=== PATIENT | female | born 1945 | race Caucasian/White ===

== ENCOUNTER 2017-01-27 09:54 | Outpatient (CLI) | payer MEDICARE ==
--- NOTE | 2017-01-27 14:00 | DEXA Report ---
DEXA SCAN: 01/27/2017 CLINICAL INDICATION: Postmenopausal. TECHNIQUE: Dual energy x-ray absorptiometry (DXA) was performed on a En[employer] system. Regions measured are the AP spine, femoral neck, and, if needed, forearm. COMPARISON: None. In accordance with the International Society for Clinical Densitometry (ISCD) guidelines, data from previous exams may be reanalyzed using current recommendations and techniques. This is done to allow a more accurate basis for comparison with the current study. FINDINGS: The data for the lumbar spine is as follows: REGION BMD (g/cm/cm) T-SCORE Z-SCORE L1 0.922 -1.7 -0.1 L2 0.928 -2.3 -0.7 L3 0.927 -2.3 -0.7 L4 0.990 -1.7 -0.2 TOTAL 0.944 -2.0 -0.4 NOTE: All evaluable vertebrae are used for classification. The data for the hip is as follows: REGION BMD (g/cm/cm) T-SCORE Z-SCORE Neck 0.868 -1.2 0.4 TOTAL 0.918 -0.7 0.7 NOTE: The femoral neck or total proximal femur, whichever is lowest, is used for classification. IMPRESSION: THE WHO CLASSIFICATION BASED ON THE INTERNATIONAL REFERENCE STANDARD IS OSTEOPENIA. THE FRACTURE RISK IS INCREASED. RECOMMENDATION: Patients with diagnosis of osteoporosis or osteopenia should have regular bone mineral density assessment. For those eligible for Medicare, routine testing is allowed once every 2 years. Testing frequency can be increased for patients who have rapidly progressing disease or for those who are receiving medical therapy to restore bone mass. COMMENT: World Health Organization (WHO) definitions for osteoporosis and osteopenia: NORMAL BMD: T-score at -1.0 or higher, fracture risk is low. OSTEOPENIA BMD: T-score between -1.0 and -2.5, fracture risk is increased. OSTEOPOROSIS BMD: T-score at -2.5 or lower, fracture risk high. National Osteoporosis Foundation recommends: 1. Obtain adequate dietary calcium (at least 1200 mg per day) and vitamin D (400 -800 international units per day). 2. Participate, as appropriate, in regular weightbearing and muscle- strengthening exercise. 3. Avoid tobacco use and reduce alcohol and caffeine intake. 4. For more detailed information see the website at www.NOF.org. MTDD
== END 2017-01-27 09:55 | disposition home or self-care (01) ==
LOC: DI 09:54
PROVIDERS: ATTEND Physician Assistant
DX: M85.89 Other specified disorders of bone density and structure, multiple sites (principal)
CPT/HCPCS: 77080

== ENCOUNTER 2017-01-27 09:55 | Outpatient (CLI) | payer MEDICARE ==
--- NOTE | 2017-01-28 17:46 | Mammography Report ---
DIGITAL SCREENING MAMMOGRAM: 01/27/2017 CLINICAL INDICATION: A 71-year-old nulliparous patient with personal history of left breast cancer s tatus post lumpectomy and chemoradiation. COMPARISON: 01/2016, 12/2014, 01/2013, 03/2011, 09/2010, 02/2010, 07/2009, 01/2009, 07/2008, 04/2008 . TECHNIQUE: Routine CC and MLO projections were obtained of the breasts. FINDINGS: The breasts demonstrate scattered fibroglandular densities bilaterally. Postoperative and posttreatment changes are present in the left breast. In the right upper central posterior breast, there is a possible developing density. Further evaluation with spot compression views and possible ultrasound is recommended. IMPRESSION: INCOMPLETE EXAMINATION. RECOMMENDATION: Additional evaluation of the right breast as above. BI-RADS category 0, incomplete. STANDARD QUALIFYING STATEMENTS 1. This examination was reviewed with the aid of Computer-Aided Detection (CAD). 2. A negative or benign imaging report should not delay biopsy if clinically suspicious findings are present. Consider surgical consultation if warranted. More than 5% of cancers are not identified by i maging. 3. Dense breasts may obscure an underlying neoplasm. JOB #: [id number] EXT JOB #:[id number]
== END 2017-01-27 09:56 | disposition home or self-care (01) ==
LOC: DI 09:55
PROVIDERS: ATTEND Physician Assistant
DX: Z12.31 Encounter for screening mammogram for malignant neoplasm of breast (principal)
CPT/HCPCS: 77067

== ENCOUNTER 2017-03-01 13:42 | Outpatient (CLI) | payer MEDICARE ==
--- NOTE | 2017-03-01 15:07 | Mammography Report ---
DIGITAL DIAGNOSTIC RIGHT MAMMOGRAM: 03/01/2017 CLINICAL INDICATION: Possible developing density right upper central breast. TECHNIQUE: Right true lateral and spot compression views. COMPARISON: 01/27/2017, 01/07/2016, 12/14/2014, 01/19/2013, 03/25/2011, 09/12/2010, 02/06/2010 FINDINGS: The right breast again demonstrates scattered fibroglandular densities. The density in qu estion dissipates evenly on additional compression. No underlying mass lesion or architectural disto rtion is identified. IMPRESSION: NEGATIVE EXAMINATION. RECOMMENDATION: Routine annual screening unless otherwise clinically indicated. BIRADS CATEGORY 1 - NEGATIVE. STANDARD QUALIFYING STATEMENTS 1. This examination was reviewed with the aid of Computer-Aided Detection (CAD). 2. A negative or benign imaging report should not delay biopsy if clinically suspicious findings are present. Consider surgical consultation if warranted. More than 5% of cancers are not identified by i maging. 3. Dense breasts may obscure an underlying neoplasm. JOB #: [id number] EXT JOB #:
== END 2017-03-01 13:43 | disposition home or self-care (01) ==
LOC: DI 13:42
PROVIDERS: ATTEND Physician Assistant
DX: R92.2 Inconclusive mammogram (principal)

== ENCOUNTER 2018-03-10 12:19 | Outpatient (CLI) | payer MEDICARE ==
--- NOTE | 2018-03-25 19:22 | Mammography Report ---
Reason: SCREEN MAMMOGRAM Procedure Date: 03/10/2018 Accession Number: [id number] / [id number] Procedure: MIRNA - Screening 3D Josiah CPT Code: 99169 FULL RESULT: EXAM: Screening 3D Josiah DATE: 03/10/2018 12:44 PM CLINICAL HISTORY: 72-year-old female with personal history of breast cancer on the left side status post lumpectomy and chemoradiation. TECHNIQUE: Bilateral CC and MLO views were obtained. COMPARISON: 03/01/2017, 01/27/2017, 01/07/2016, 12/14/2014. FINDINGS: The breasts demonstrate heterogeneously dense fibroglandular parenchyma bilaterally. Post treatment changes including postsurgical changes are seen in the left breast. There is a new asymmetry with microcalcifications in the right upper breast 4.9 centimeters from the nipple at the 1:00 position which requires further evaluation. IMPRESSION: Incomplete examination RECOMMENDATION: Additional evaluation as above. BIRADS CATEGORY 0: Incomplete examination STANDARD QUALIFYING STATEMENTS: 1. This examination was not reviewed with the aid of Computer-Aided Detection (CAD). 2. A negative or benign imaging report should not delay biopsy if clinically suspicious findings are present. Consider surgical consultation if warrented. More than 5% of cancers are not identified by imaging. 3. Dense breasts may obscure an underlying neoplasm. 4. This examination was reviewed with the aid of 3D imaging (tomography).
== END 2018-03-10 12:20 | disposition home or self-care (01) ==
LOC: DI 12:19
PROVIDERS: ATTEND Physician Assistant
DX: Z12.31 Encounter for screening mammogram for malignant neoplasm of breast (principal); R92.8 Other abnormal and inconclusive findings on diagnostic imaging of breast; R92.0 Mammographic microcalcification found on diagnostic imaging of breast; Z85.3 Personal history of malignant neoplasm of breast
CPT/HCPCS: 77063; 77067

== ENCOUNTER 2018-04-07 11:45 | Outpatient (CLI) | payer MEDICARE ==
--- NOTE | 2018-04-07 12:53 | Mammography Report ---
Reason: ABN MAMMO - RT SPECIAL VIEWS Procedure Date: 04/07/2018 Accession Number: [id number] / [id number] Procedure: MIRNA - Diag Special Views Dig RT CPT Code: FULL RESULT: EXAM: Diag Special Views Dig RT DATE: 04/07/2018 12:25 PM CLINICAL HISTORY: 72-year-old female recalled from screening mammogram for a new asymmetry in the right breast. TECHNIQUE: Right MLO 2-D, MLO tomography and spot MLO views were obtained. COMPARISON: 03/10/2018, 03/01/2017, 01/27/2017, 01/07/2016. FINDINGS: The breasts demonstrate scattered fibroglandular densities bilaterally. The previously seen new asymmetry is identified as normal breast tissue on the tomogram and resolves with spot views. IMPRESSION: Benign findings RECOMMENDATION: Recommend routine annual Screening mammography unless otherwise clinically indicated. BIRADS CATEGORY 2: Benign findings STANDARD QUALIFYING STATEMENTS: 1. This examination was not reviewed with the aid of Computer-Aided Detection (CAD). 2. A negative or benign imaging report should not delay biopsy if clinically suspicious findings are present. Consider surgical consultation if warrented. More than 5% of cancers are not identified by imaging. 3. Dense breasts may obscure an underlying neoplasm. 4. This examination was reviewed with the aid of 3D imaging (tomography).
== END 2018-04-07 11:46 | disposition home or self-care (01) ==
LOC: DI 11:45
PROVIDERS: ATTEND Physician Assistant
DX: R92.2 Inconclusive mammogram (principal); N64.89 Other specified disorders of breast

== ENCOUNTER 2019-01-19 11:10 | Outpatient (CLI) | payer MEDICARE ==
--- NOTE | 2019-01-19 13:54 | XRAY Report ---
Reason: SHORTNESS OF BREATH, THYROID NODULE Procedure Date: 01/19/2019 Accession Number: [id number] / [id number] Procedure: XR - Chest 2 View X-Ray CPT Code: 10426 FULL RESULT: EXAM: CHEST RADIOGRAPHY EXAM DATE: 01/19/2019 11:22 AM. CLINICAL HISTORY: Dyspnea and shortness of breath. COMPARISON: XR CHEST PA AND LAT 11/17/2006 12:03 PM. TECHNIQUE: 2 views. FINDINGS: Lungs/Pleura: No focal opacities evident. There is minimal blunting of both costophrenic angles on frontal view when compared to prior with lateral view supportive of the possibility of a trace unilateral pleural effusion, favor left side. No pneumothorax. Normal volumes. Mediastinum: Heart and mediastinal contours are unremarkable. Other: Note is made of interval finding of surgical clips projecting over the left hemithorax and left axillary region, presumed interval left lumpectomy with lymph node dissection. IMPRESSION: Possible trace left pleural effusion with no airspace disease detected. RADIA
--- NOTE | 2019-01-19 14:39 | Ultrasound Report ---
Reason: SHORTNESS OF BREATH, THYROID NODULE Procedure Date: 01/19/2019 Accession Number: [id number] / [id number] Procedure: US - Head or Neck Soft Tissue CPT Code: FULL RESULT: EXAM: THYROID ULTRASOUND EXAM DATE: 01/19/2019 01:24 PM. CLINICAL HISTORY: Shortness of breath, thyroid nodule. COMPARISON: THYROID 04/08/2007 4:26 PM. TECHNIQUE: Real time sonographic imaging of the thyroid was performed by the network control supervisor. Multiple consumer sales representative static images were saved for review. FINDINGS: THYROID GLAND: Right Lobe: 5.5 x 3.1 x 3.1 cm, volume 25.6 cc. Diffusely heterogeneous and multinodular. Right Lobe Nodules: In the medial upper pole is a 2.8 x 1.4 x 1.8 cm heterogeneous nodule, in the mid pole is a 1.6 x 0.8 x 1.6 cm nodule, and in the inferior pole is a 1.3 x 1.2 x 1.2 cm nodule, all heterogeneous. Left Lobe: 4.7 x 1.8 x 1.2 cm, volume 4.7 cc. Diffusely heterogeneous and multinodular. Left Lobe Nodules: 0.8 x 0.5 x 0.7 cm upper pole nodule and 0.9 x 0.6 x 0.6 cm lower pole nodule. Isthmus: 0.2 cm AP. Isthmic Nodules: None. LYMPH NODES: No adenopathy demonstrated in the central or lateral compartment. OTHER: None. IMPRESSION: Multinodular thyroid gland. Largest discretely measurable nodule is in the upper pole of the right gland and measures 2.8 x 1.5 x 1.8 cm, recommend fine-needle aspiration biopsy of this nodule. Management recommendations are based on 2015 [place] [employer] Management Guidelines for Adult Patients with Thyroid Nodules and Differentiated Thyroid Cancer. RADIA
== END 2019-01-19 11:11 | disposition home or self-care (01) ==
LOC: DI 11:10
PROVIDERS: ATTEND Physician Assistant
DX: R06.02 Shortness of breath (principal); E04.2 Nontoxic multinodular goiter
CPT/HCPCS: 71046; 76536

== ENCOUNTER 2019-03-29 11:09 | Outpatient (CLI) | payer MEDICARE ==
--- NOTE | 2019-03-30 10:05 | Mammography Report ---
Reason: ROUTINE MAMMO Procedure Date: 03/29/2019 Accession Number: [id number] / [id number] Procedure: MIRNA - Screening Mammo w/Josiah CPT Code: FULL RESULT: EXAM: Screening Mammo w/Josiah DATE: 03/29/2019 11:41 AM CLINICAL HISTORY: Screening encounter. History of nulliparity. Personal history of left breast cancer status post lumpectomy and chemoradiation, remote. TECHNIQUE: (B) - Bilateral CC and MLO views were obtained. COMPARISON: 03/10/2018 through 12/14/2014. PARENCHYMAL PATTERN: (D) - The breast(s) demonstrate(s) heterogeneously dense fibroglandular parenchyma. FINDINGS: Posttreatment changes in the left breast are stable. There are no suspicious masses, calcifications, or areas of distortion. IMPRESSION: Benign findings. BI-RADS category 2. RECOMMENDATION: (ANNUAL) - Recommend routine annual screening mammography. BI-RADS CATEGORY: (2) - Benign Findings. STANDARD QUALIFYING STATEMENTS: 1. This examination was not reviewed with the aid of Computer-Aided Detection (CAD). 2. A negative or benign imaging report should not preclude biopsy if clinically suspicious findings are present. 3. Dense breasts may obscure an underlying neoplasm. 4. This examination was reviewed with the aid of 3D breast imaging (tomosynthesis).
== END 2019-03-29 11:10 | disposition home or self-care (01) ==
LOC: DI 11:09
PROVIDERS: ATTEND Physician Assistant
DX: Z12.31 Encounter for screening mammogram for malignant neoplasm of breast (principal); Z08 Encounter for follow-up examination after completed treatment for malignant neoplasm; Z85.3 Personal history of malignant neoplasm of breast; R06.02 Shortness of breath; E04.1 Nontoxic single thyroid nodule
CPT/HCPCS: 77063; 77067

== ENCOUNTER 2020-04-26 14:27 | Outpatient (CLI) | payer MEDICARE ==
--- NOTE | 2020-04-26 15:27 | DEXA Report ---
PROCEDURE: Dexa Spine and/or Hip INDICATIONS: OSTEOPENIA TECHNIQUE: Dual energy x-ray absorptiometry (DXA) was performed on a 2-[employer]erve System. Regions measur ed are the AP Spine, femoral neck, and if needed forearm. COMPARISON: DEXA 01/27/2017, compared to -2.0 on prior exam. FINDINGS: Lumbar Spine: Bone Mineral Density 0.977 g/cm/cm,T score -1.7, mild to moderate osteopenia, compared to -2.0 on prior exam. Left Hip: Bone Mineral Density 0.904 g/cm/cm,T score -0.8, compared to -0.7 on prior exam. Normal bone density . Left Femoral Neck: Bone Mineral Density 0.850 g/cm/cm, T score -1.3, compared to -1.2 on prior exam, minimal osteopenia . (T score greater or equal to -1.0: NORMAL) (T score from -1.1 to -2.4: OSTEOPENIA) (T score less than or equal to -2.5 to: OSTEOPOROSIS) Impression: Stable interval exam with minimal osteopenia within left femoral neck and minimal improve ment of previous mild to moderate osteopenia in the lumbar spine. Patients with diagnosis of osteoporosis or osteopenia should have regular bone mineral density assess ment. For those eligible for Medicare, routine testing is allowed once every 2 years. Testing frequ ency can be increased for patients who have rapidly progressing disease or for those who are receivin g medical therapy to restore bone mass. Reviewed by: Glenna Mccartney MD on 04/26/2020 3:26 PM PDT Approved by: Glenna Mccartney MD on 04/26/2020 3:26 PM PDT Station ID: [id number]
== END 2020-04-26 14:28 | disposition home or self-care (01) ==
LOC: DI 14:27
PROVIDERS: ATTEND Family Medicine
DX: M85.89 Other specified disorders of bone density and structure, multiple sites (principal)
CPT/HCPCS: 77080

== ENCOUNTER 2020-04-26 14:29 | Outpatient (CLI) | payer MEDICARE ==
--- NOTE | 2020-04-29 16:25 | Mammography Report ---
BILATERAL DIGITAL SCREENING MAMMOGRAM 3D/2D: 04/26/2020 CLINICAL: Routine screening. Personal history of left breast cancer. Comparison is made to exams dated: 03/29/2019 mammogram, 04/17/2018 mammogram, 03/10/2018 mammogram, mammogram, 01/27/2017 mammogram, and 01/07/2016 mammogram - [facility]. The t issue of both breasts is heterogeneously dense. This may lower the sensitivity of mammography. There are benign post operative findings in the left breast. No significant masses, calcifications, or other findings are seen in either breast. There has been no significant interval change. IMPRESSION: BENIGN There is no mammographic evidence of malignancy. A 1 year screening mammogram is recommended. This exam was interpreted at Station ID: [id number]. NOTE: For mammograms, a report in lay terms will be sent to the patient. Approximately 15% of breast malignancies will not be visualized mammographically. In the management of a palpable breast mass, a negative mammogram must not discourage biopsy of a clinically suspicious lesion. Electronically Signed By: Ruben magdaleno/tanrad:04/26/2020 16:28:24 ACR BI-RADS Category 2: Benign Finding(s) 3342F PARENCHYMAL PATTERN: (D) - The breast(s) demonstrate(s) heterogeneously dense fibroglandular brock hui. BI-RADS CATEGORY: (2) - 2 RECOMMENDATION: (ANNUAL) - Recommend routine annual screening mammography. [id number] 1 year screening LATERALITY: (B)
== END 2020-04-26 14:30 | disposition home or self-care (01) ==
LOC: DI 14:29
PROVIDERS: ATTEND Family Medicine
DX: Z12.31 Encounter for screening mammogram for malignant neoplasm of breast (principal); Z85.3 Personal history of malignant neoplasm of breast
CPT/HCPCS: 77063; 77067

== ENCOUNTER 2021-01-20 08:00 | Outpatient (CLI) | payer MEDICARE ==
--- NOTE | 2021-01-20 11:36 | XRAY Report ---
PROCEDURE: Thoracic Spine 3 View INDICATIONS: BACK PAIN, THORACIC TECHNIQUE: 3 views of the thoracic spine were acquired. COMPARISON: None. FINDINGS: Bones: No fractures or dislocations. No suspicious bony lesions. 12 pairs of ribs are noted, and a ppear intact where visualized. Soft tissues: No paravertebral stripe thickening. IMPRESSION: There is a mild degree of degenerative disc height reduction but no sign of compression fracture or s ubluxation. No definite spinal and foraminal stenosis is found. Reviewed by: Tu Brown MD on 01/20/2021 11:35 AM PDT Approved by: Tu Brown MD on 01/20/2021 11:35 AM PDT Station ID: [id number]
== END 2021-01-20 23:59 | disposition home or self-care (01) ==
LOC: DI.S 08:00
PROVIDERS: ATTEND Physician Assistant Medical
DX: M51.34 Other intervertebral disc degeneration, thoracic region (principal)

== ENCOUNTER 2021-05-02 10:14 | Outpatient (CLI) | payer MEDICARE | END 2021-05-02 10:15 | disposition home or self-care (01) | LOC: DI 10:14 | PROVIDERS: ATTEND Physician Assistant | DX: I34.0 Nonrheumatic mitral (valve) insufficiency (principal) | CPT/HCPCS: 93306 ==

== ENCOUNTER 2022-11-19 09:13 | Outpatient (CLI) | payer MEDICARE, OTHER ==
--- NOTE | 2022-11-19 16:11 | DEXA Report ---
PROCEDURE: Dexa Spine and/or Hip INDICATIONS: OSTEOPENIA TECHNIQUE: Dual energy x-ray absorptiometry (DXA) was performed on a [employer] System. Regions measur ed are the AP Spine, femoral neck, and if needed forearm. COMPARISON: None FINDINGS: Lumbar Spine: Bone Mineral Density 0.94 g/cm/cm,T score -2.0. Osteopenia Right Femoral Neck: Bone Mineral Density 0.90 g/cm/cm, T score -0.8. Normal bone density Impression: By WHO criteria, this patient has osteopenia of the lumbar spine and normal right femoral neck bone d ensity. Patients with diagnosis of osteoporosis or osteopenia should have regular bone mineral density assess ment. For those eligible for Medicare, routine testing is allowed once every 2 years. Testing frequ ency can be increased for patients who have rapidly progressing disease or for those who are receivin g medical therapy to restore bone mass. Reviewed by: Chandana Marinelli MD on 11/19/2022 4:09 PM PDT Approved by: Chandana Marinelli MD on 11/19/2022 4:09 PM PDT Station ID: [id number]
== END 2022-11-19 09:14 | disposition home or self-care (01) ==
LOC: DI 09:13
PROVIDERS: ATTEND Physician Assistant
DX: M85.89 Other specified disorders of bone density and structure, multiple sites (principal)

== ENCOUNTER 2022-11-19 09:14 | Outpatient (CLI) | payer MEDICARE, OTHER ==
--- NOTE | 2022-11-19 12:27 | Ultrasound Report ---
LIMITED ULTRASOUND OF RIGHT BREAST: 11/19/2022 CLINICAL: Intermittent pain in bilateral breasts. Comparison is made to exams dated: 11/19/2022 ultrasound, 11/19/2022 mammogram, and 04/26/2020 mammogr [facility]. Color flow and real-time ultrasound of the right breast 7-8 o'clock region were performed. Bowens scal e images of the real-time examination were reviewed. IMPRESSION: NEGATIVE There is no sonographic evidence of malignancy. There is no abnormality seen in the right breast to correspond with the area of clinical concern at 8 o'clock, however, clinical correlation and clinical followup are recommended. Return to annual mammogram screening schedule is recommended. This exam was interpreted at Station ID: [id number]. Electronically Signed By: Mars Schofield M.D. lc/:11/19/2022 10:22:07 Ultrasound BI-RADS: 1 Negative BI-RADS CATEGORY: (1) - 1 Mammogram [id number] return to screening LATERALITY: (B)
--- NOTE | 2022-11-19 12:27 | Mammography Report ---
BILATERAL DIGITAL DIAGNOSTIC MAMMOGRAM 3D/2D: 11/19/2022 CLINICAL: Focal pain in bilateral breasts. Personal history of left breast cancer. Comparison is made to exams dated: 04/26/2020 mammogram, 03/29/2019 mammogram, 04/17/2018 mammogram, 03/10/2018 mammogram, 03/01/2017 mammogram, and 01/27/2017 mammogram - [facility]. Both breasts are heterogeneously dense, which may obscure small masses (category c / 51-75% glandular tissue). The left breast has post-operative findings. No significant masses, calcifications, or other findings are seen in either breast. IMPRESSION: INCOMPLETE: NEEDS ADDITIONAL IMAGING EVALUATION There is no abnormality seen in either breast to correspond with the areas of clinical concern, howev er, ultrasound is recommended. This exam was interpreted at Station ID: [id number]. NOTE: For mammograms, a report in lay terms will be sent to the patient. Approximately 15% of breast malignancies will not be visualized mammographically. In the management of a palpable breast mass, a negative mammogram must not discourage biopsy of a clinically suspicious lesion. Electronically Signed By: Mars Schofield M.D. lc/:11/19/2022 10:19:51 ACR BI-RADS Category 0: Incomplete 3340F PARENCHYMAL PATTERN: (D) - The breast(s) demonstrate(s) heterogeneously dense fibroglandular pardovy ma. BI-RADS CATEGORY: (0) - 0 Ultrasound [id number] Immediate follow-up LATERALITY: (B)
--- NOTE | 2022-11-19 12:27 | Ultrasound Report ---
LIMITED ULTRASOUND OF LEFT BREAST: 11/19/2022 CLINICAL: Intermittent pain in bilateral breasts. Comparison is made to exams dated: 11/19/2022 mammogram and 04/26/2020 mammogram - [facility]. Color flow and real-time ultrasound of the left breast 5 o'clock region were performed. Bowens scale images of the real-time examination were reviewed. IMPRESSION: NEGATIVE There is no sonographic evidence of malignancy. There is no abnormality seen in the left breast to correspond with the area of clinical concern at 5 o'clock, however, clinical correlation and clinical followup are recommended. Return to annual mammogram screening schedule is recommended. This exam was interpreted at Station ID: [id number]. Electronically Signed By: Mars Schofield M.D. lc/:11/19/2022 10:21:31 Ultrasound BI-RADS: 1 Negative BI-RADS CATEGORY: (1) - 1 Mammogram [id number] return to screening LATERALITY: (B)
== END 2022-11-19 09:15 | disposition home or self-care (01) ==
LOC: DI 09:14
PROVIDERS: ATTEND Physician Assistant
DX: N64.4 Mastodynia (principal); Z85.3 Personal history of malignant neoplasm of breast

== ENCOUNTER 2023-12-27 09:52 | Outpatient (CLI) | payer MEDICARE, OTHER ==
--- NOTE | 2023-12-28 08:40 | Mammography Report ---
BILATERAL DIGITAL SCREENING MAMMOGRAM 3D/2D WITH EXAGGERATED CC: 12/27/2023 CLINICAL: Routine screening. Personal history of left breast cancer. Comparison is made to exams dated: 11/19/2022 mammogram, 03/29/2019 mammogram, and 04/26/2020 mammogra m - [facility]. Both breasts are heterogeneously dense, which may obscure small masses (category c / 51-75% glandular tissue). There are benign post operative findings in the left breast. No significant masses, calcifications, or other findings are seen in either breast. There has been no significant interval change. IMPRESSION: BENIGN There is no mammographic evidence of malignancy. A 1 year screening mammogram is recommended. This exam was interpreted at Station ID: [id number]. NOTE: For mammograms, a report in lay terms will be sent to the patient. Approximately 15% of breast malignancies will not be visualized mammographically. In the management of a palpable breast mass, a negative mammogram must not discourage biopsy of a clinically suspicious lesion. Electronically Signed By: Mars velez/madi:12/27/2023 10:59:38 letter sent: No_Letter ACR BI-RADS Category 2: Benign Finding(s) 3342F PARENCHYMAL PATTERN: (D) - The breast(s) demonstrate(s) heterogeneously dense fibroglandular brock hui. BI-RADS CATEGORY: (2) - 2 RECOMMENDATION: (ANNUAL) - Recommend routine annual screening mammography. [id number] 1 year screening LATERALITY: (B)
== END 2023-12-27 09:53 | disposition home or self-care (01) ==
LOC: DI.S 09:52
DX: Z12.31 Encounter for screening mammogram for malignant neoplasm of breast (principal); R92.333 Mammographic heterogeneous density, bilateral breasts; Z85.3 Personal history of malignant neoplasm of breast

== ENCOUNTER 2023-12-27 09:52 | Outpatient (CLI) | payer MEDICARE, OTHER ==
--- NOTE | 2023-12-28 08:48 | XRAY Report ---
PROCEDURE: Cervical Spine w/Flex/Ext 6+V INDICATIONS: OTHER SPECIFIED DORSOPATHIES, CERVICAL REGION TECHNIQUE: 7 views of the cervical spine were acquired. COMPARISON: None. FINDINGS: Bones: No fractures or dislocations to the T1 level. No suspicious bony lesions. Grade 1 anterolis thesis of C3 on C4. Multilevel degenerative disc disease, moderate at C4-C5, C5-C6 and C6-C7, mild at C7-T1. Bilateral facet arthropathy, most pronounced and severe at C5 and C5 on the right. Flexion and extension: There is reduced range of motion between flexion and extension, with stable [place] alignment. Oblique views: Moderate foraminal stenoses at C4-C5, C5-C6 and C6-7 C7 on the right, and C5-C6 and C6 -C7 on the left. Soft tissues: Prevertebral soft tissues are normal in thickness. IMPRESSION: 1. Multilevel degenerative disc and facet disease in cervical spine as described. 2. Reduced range of motion with stable alignment. 3. Moderate foraminal stenoses at multiple levels bilaterally. 4. Consider cervical spine MRI if there are radiculopathy symptoms. Reviewed by: Radha Hilario MD on 12/28/2023 8:47 AM PDT Approved by: Radha Hilario MD on 12/28/2023 8:47 AM PDT Station ID: [id number]
== END 2023-12-27 09:53 | disposition home or self-care (01) ==
LOC: DI.S 09:52
PROVIDERS: ATTEND Internal Medicine
DX: M47.812 Spondylosis without myelopathy or radiculopathy, cervical region (principal); M50.321 Other cervical disc degeneration at C4-C5 level; M48.02 Spinal stenosis, cervical region; M85.80 Other specified disorders of bone density and structure, unspecified site; Z13.220 Encounter for screening for lipoid disorders; Z13.228 Encounter for screening for other metabolic disorders; E04.1 Nontoxic single thyroid nodule; E06.3 Autoimmune thyroiditis; R42 Dizziness and giddiness
CPT/HCPCS: 36415; 80053; 80061; 83036; 83721; 84439; 84443; 84481; 85025

== ENCOUNTER 2023-12-27 10:49 | Outpatient (CLI) | payer MEDICARE, OTHER ==
[2023-12-27 15:22] LABS: ALBUMIN 4.4 g/dL (3.2-5.5); ALBUMIN/GLOBULIN RATIO 1.4 (1.0-2.2); ALKALINE PHOSPHATASE 58 IU/L (42-121); ALT ALANINE AMINOTRANSFERASE 14 IU/L (10-60); AST ASPARTATE AMINOTRANSFERASE 16 IU/L (10-42); BASOPHILS # (AUTO) 0.1 10^3/uL (0.0-0.1); BASOPHILS % (AUTO) 0.6 %; BUN - BLOOD UREA NITROGEN 16 mg/dL (6-20); CALCIUM 9.9 mg/dL (8.5-10.3); CARBON DIOXIDE - CO2 31 mmol/L (21-32); CHLORIDE 102 mmol/L (101-111); CHOL/HDL RATIO 3.2 (<4.4); CHOLESTEROL 209 mg/dL; CREATININE 0.7 mg/dL (0.6-1.3); EOSINOPHILS # (AUTO) 0.1 10^3/uL (0.0-0.7); EOSINOPHILS % (AUTO) 0.8 %; GFR - MDRD 81 (>89); GLUCOSE 118 mg/dL (74-104); HCT - HEMATOCRIT 44.7 % (37.0-47.0); HDL CHOLESTEROL 65 mg/dL; LDL CHOLESTEROL,CALCULATED 109 mg/dL; LDL/HDL RATIO 1.7 (<4.4); LYMPHOCYTES # (AUTO) 1.9 10^3/uL (1.5-3.5); LYMPHOCYTES % (AUTO) 22.1 %; MEAN CORPUSCULAR HEMOGLOBIN 28.6 pg (27.0-31.0); MEAN CORPUSCULAR HGB CONC 31.3 g/dL (32.0-36.0); MEAN CORPUSCULAR VOLUME 91.4 fL (81.0-99.0); MEAN PLATELET VOLUME 9.7 fL (7.9-10.8); MONOCYTES # (AUTO) 0.6 10^3/uL (0.0-1.0); MONOCYTES % (AUTO) 7.3 %; PLT - PLATELET COUNT 297 10^3/uL (130-450); POTASSIUM 4.1 mmol/L (3.5-4.5); RED BLOOD COUNT 4.89 10^6/uL (4.20-5.40); RED CELL DISTRIBUTION WIDTH 13.8 % (12.0-15.0); SODIUM 139 mmol/L (135-145); TOTAL PROTEIN 7.6 g/dL (6.4-8.9); TRIGLYCERIDES 176 mg/dL (48-352); VLDL CHOLESTEROL 35 mg/dL; WHITE BLOOD COUNT 8.7 x10^3/uL (4.8-10.8)
[2023-12-27 15:32] LABS: THYROID STIMULATING HORMONE 0.83 uIU/mL (0.34-5.60)
[2023-12-27 21:05] LABS: ESTIMATED AVERAGE GLUCOSE 111 mg/dL (70-100); HEMOGLOBIN A1c% 5.5 % (4.27-6.07)
== END 2023-12-27 10:50 | disposition home or self-care (01) ==
LOC: LAB.S 10:49
PROVIDERS: ATTEND Internal Medicine
DX: M85.80 Other specified disorders of bone density and structure, unspecified site (principal); Z13.220 Encounter for screening for lipoid disorders; Z13.228 Encounter for screening for other metabolic disorders; E04.1 Nontoxic single thyroid nodule; E06.3 Autoimmune thyroiditis; R42 Dizziness and giddiness
CPT/HCPCS: 36415; 80053; 80061; 83036; 83721; 84439; 84443; 84481; 85025

== ENCOUNTER 2024-01-08 10:11 | Outpatient (CLI) | payer MEDICARE, OTHER ==
--- NOTE | 2024-01-09 21:28 | Ultrasound Report ---
PROCEDURE: Soft Tissue Head or Neck INDICATIONS: THYROID NODULE TECHNIQUE: Real-time scanning was performed of the thyroid gland, with image documentation. COMPARISON: Thyroid ultrasound on January 19, 2019 FINDINGS: Right: Thyroid lobe measures 6.6 x 2.8 x 3.3 cm. Left: Thyroid lobe measures 3 x 0.9 x 0.9 cm Isthmus: Size cm thick. Echotexture: Heterogeneous enlarged multinodular right thyroid gland. Left thyroid gland is relativel y atrophic.. Nodule number: One Location: Right superior Size: 1.6 x 1.6 x 1.2 cm, previously 2.8 x 1.4 x 1.8 cm. Composition: Solid (2 points). Echogenicity: Isoechoic (1 point). Shape: wider than tall (0 points). Margins: Lobulated / Irregular (2 points). Echogenic foci: None (0 points). Total points: 6 ACR TI-RADS category: TI-RADS 4: Moderately suspicious. Nodule number: Two Location: Right mid Size: 1.5 x 2 x 1 cm, previously 1.6 x 1.6 x 0.8 cm. Composition: Solid (2 points). Echogenicity: Isoechoic (1 point). Shape: wider than tall (0 points). Margins: Lobulated / Irregular (2 points). Echogenic foci: None (0 points). Total points: 5 ACR TI-RADS category: TI-RADS 4: Moderately suspicious. Nodule number: Three Location: Right inferior Size: 1.2 x 1.1 x 1.2 cm, previously 1.3 x 1.2 x 1.2 cm. Composition: Solid (2 points). Echogenicity: Hypoechoic (2 points). Shape: wider than tall (0 points). Margins: Lobulated / Irregular (2 points). Echogenic foci: None (0 points). Total points: 6 ACR TI-RADS category: TI-RADS 4: Moderately suspicious. Nodule number: Four Location: Left superior Size: 0.8 x 1.1 x 0.6 cm, previously 0.8 x 0.5 x 0.7 cm. Composition: Solid (2 points). Echogenicity: Isoechoic (1 point). Shape: wider than tall (0 points). Margins: Smooth (0 points). Echogenic foci: None (0 points). Total points: 3 ACR TI-RADS category: TI-RADS 3: Mildly suspicious. Nodule number: 5 Location: Left mid to lower Size: 0.5 x 1 x 10.6 cm, previously 0.9 x 0.6 x 0.6 cm. Composition: Solid (2 points). Echogenicity: Hypoechoic (2 points). Shape: wider than tall (0 points). Margins: Smooth (0 points). Echogenic foci: None (0 points). Total points: 4 ACR TI-RADS category: TI-RADS 4: Moderately suspicious. IMPRESSION: 1.Right thyroid gland is enlarged and multinodular. Nodule 2 in the right mid lobe has slightly incre ased in size and is TIRADS-4 measuring 1.5 x 2 x 1 cm, previously 1.6 x 1.6 x 0.8 cm. Recommend FNA. 2.Nodule 1 has decreased in size. Recommend continued ultrasound follow-up. 3.Nodule 3 is stable in size. Recommend continued ACR TI-RADS definitions and recommendations: TI-RADS 1 (benign): 0 points. FNA not needed. TI-RADS 2 (not suspicious): 2 points. FNA not needed. TI-RADS 3 (mildly suspicious): 3 points. "FNA if 2.5 cm or larger, follow up if 1.5 cm or larger (at 1, 3, and 5 years). TI-RADS 4 (moderately suspicious): 4-6 points. "FNA if 1.5 cm or larger, follow up if 1 cm or larger (at 1, 2, 3, and 5 years). TI-RADS 5 (highly suspicious): 7 points or more. "FNA if 1 cm or larger, follow up if 0.5 cm or larger (every year for 5 years). Reviewed by: Sai Thompson MD on 01/09/2024 9:27 PM PDT Approved by: Sai Thompson MD on 01/09/2024 9:27 PM PDT Station ID: [id number]
== END 2024-01-08 10:12 | disposition home or self-care (01) ==
LOC: DI 10:11
PROVIDERS: ATTEND Internal Medicine
DX: E04.2 Nontoxic multinodular goiter (principal); E06.3 Autoimmune thyroiditis

== ENCOUNTER 2024-02-17 12:32 | Outpatient (CLI) | payer MEDICARE, OTHER | END 2024-02-17 12:33 | disposition home or self-care (01) | LOC: DI 12:32 | PROVIDERS: ATTEND Internal Medicine | DX: I34.0 Nonrheumatic mitral (valve) insufficiency (principal); I51.7 Cardiomegaly | CPT/HCPCS: 93307 ==